=== PATIENT | female | born 1985 | race African-American/Black ===

== ENCOUNTER → 2017-03-08 | Outpatient (CLI) | payer OTHER, MEDICAID | LOC: HPND 08:06 | DX: O26.872 Cervical shortening, second trimester (principal); O34.12 Maternal care for benign tumor of corpus uteri, second trimester; D25.1 Intramural leiomyoma of uterus; Z3A.19 19 weeks gestation of pregnancy | CPT/HCPCS: 76805; 76817 ==

== ENCOUNTER → 2017-09-21 | Outpatient (CLI) | payer OTHER ==
[~2017-09-21] MED LIST: CEPH-460 PO; IBUP-232 PO; OXYC1TAB63 PO; SENN8.6T13 PO
[2017-09-21 12:37] LABS: HEMATOCRIT 39.5 % (35.0-46.0); HEMO FLAGS DIFF FINAL; MEAN CELL VOLUME 89.2 FL (80.0-100.0); MEAN CORPUSCULAR HEMOGLOBIN 30.2 PG (27.0-34.0); MEAN CORPUSCULAR HGB CONC 33.9 % (32.0-36.0); PLATELET COUNT 299 TH/MM3 (150-450); RED BLOOD COUNT 4.43 MIL/MM3 (4.00-5.30); RED CELL DISTRIBUTION WIDTH 12.5 % (11.6-17.2); WHITE BLOOD COUNT 7.6 TH/MM3 (4.0-11.0)
[2017-09-21 12:38] LABS: AUTOMATED NEUTROPHIL # 3.2 TH/MM3 (1.8-7.7); BASOPHIL % 0.6 % (0.0-2.0); EOSINOPHIL # 0.1 TH/MM3 (0-0.4); EOSINOPHIL % 1.9 % (0.0-4.0); LYMPH % 47.2 % (9.0-44.0); LYMPHOCYTE # 3.6 TH/MM3 (1.0-4.8); MONO % 8.3 % (0.0-8.0)
[2017-09-21 12:56] LABS: BLOOD, URINE NEG (NEG); GLUCOSE,URINE NEG (NEG); KETONE, URINE NEG (NEG); MUCUS URINE FEW /lpf (OCC); NITRITE,URINE NEG (NEG); URINE COLOR YELLOW (YELLW/STRAW)
[2017-09-21 13:05] LABS: ANION GAP 5 MEQ/L (5-15); BICARBONATE 28.6 MEQ/L (21.0-32.0); BLOOD UREA NITROGEN 11 MG/DL (7-18); CHLORIDE 104 MEQ/L (98-107); GLOMERULAR FILTRATION RATE 114 ML/MIN (>89); GLUCOSE,FASTING 73 MG/DL (74-99); POTASSIUM 3.7 MEQ/L (3.5-5.1); SODIUM (NA) 138 MEQ/L (136-145)
[2017-09-21 13:18] LABS: BHCG SCREEN QUALITATIVE LESS THAN 1 MIU/ML (0-5)
== END ==
LOC: CPRE 11:55
PROVIDERS: ATTEND Obstetrics & Gynecology
DX: Z01.812 Encounter for preprocedural laboratory examination (principal); D25.9 Leiomyoma of uterus, unspecified
CPT/HCPCS: 36415; 80048; 81001; 84703; 85025

== ENCOUNTER 2017-09-26 05:34 | Inpatient (IN) | payer OTHER ==
[~2017-09-26] VITALS: Ht 162.6 cm; Wt 95.6 kg
[2017-09-26] MEDS ORDERED: CHLORHEXIDINE GLUCONATE 2 % 1 PACK (2 CLOTHS) TOPICAL PRN (06:00)
[2017-09-26] MEDS ORDERED: LACTATED RINGER'S 1000 ML IV PRN (06:00)
[2017-09-26] MEDS ORDERED: METOPROLOL TARTRATE 25 MG TAB PO PRN (06:00)
[2017-09-26] MEDS ORDERED: ceFAZolin 2 GM PREMIX 50 ML IV SCH (06:00)
[2017-09-26] MEDS ORDERED: POVIDONE IODINE 5% (ANTISEPSIS KIT) 4 APPLICATIONS EACH NARE PRN (06:00)
[2017-09-26] MEDS ORDERED: ACETAMINOPHEN 1000 MG/100 ML 100 ML IV ONE (06:39)
[2017-09-26] MEDS ORDERED: VASOPRESSIN 20 UNITS/ML VIAL (IVTITR) ONE (07:12)
[2017-09-26] MEDS ORDERED: DOCUSATE SODIUM 100 MG CAP PO PRN (09:15)
[2017-09-26] MEDS ORDERED: PROMETHAZINE HCL 25 MG TAB PO PRN (09:15)
[2017-09-26] MEDS ORDERED: ONDANSETRON ODT 4 MG TAB SL PRN (09:15)
[2017-09-26] MEDS ORDERED: oxyCODONE/ACETAMINOPHEN 5 MG/325 MG TAB PO PRN (09:15)
[2017-09-26] MEDS ORDERED: ONDANSETRON HCL 4 MG/2 ML VIAL IV PUSH PRN (09:15)
[2017-09-26] MEDS ORDERED: NALOXONE HCL 0.4 MG/ML AMP IV PUSH PRN (09:15)
--- NOTE | 2017-09-26 09:16 | HHI.PR ---
Immediate Post Op Note Procedure Date: Sep 26, 2017 Pre Op Diagnosis: (1) Uterine leiomyoma (2) Premenopausal menorrhagia (3) Abdominal bloating Post Op Diagnosis: (1) Uterine leiomyoma (2) Premenopausal menorrhagia (3) Abdominal bloating Surgeon: Yanelis Adan MD Anode Machine Operator(s): Anabel James MD Procedure: Exam under anesthesia, exploratory laparotomy, uterine myomectomy Findings: enlarged 18 wk size leiomyomatous uterus, normal bilateral adnexa Complications: none Specimen(s) removed: uterine leiomyoma x 2 Estimated blood loss: 150 mL Anesthesia: General Drains: None Fluids: 1800mL IVF Urinary Output (mLs): 450 Patient to: PACU Patient Condition: Good Yanelis Adan MD Sep 26, 2017 09:16
[2017-09-26] MEDS ORDERED: *morphine SULFATE 8 MG/ML PERIprocedure ONLY ONE (09:35)
--- NOTE | 2017-09-26 09:40 | MP ---
cc: KEYANA MCCONNELL M.D. DATE OF SURGERY September 26, 2017 DATE OF 1985 PREOPERATIVE DIAGNOSES 1. Enlarged fibroid uterus. 2. Abdominal pain and bloating. 3. Premenopausal menorrhagia. POSTOPERATIVE DIAGNOSES 1. Enlarged fibroid uterus. 2. Abdominal pain and bloating. 3. Premenopausal menorrhagia. 4. Postop day #0. INDICATIONS Angelina Hendrickson is a 31-year-old 1, para 0-1-0-1 who has a history of enlarging abdominal girth unintentionally with bloating and cramps, dyspareunia and heavy cycles. She recently had a that was complicated by cervical dilation and she delivered at around 25 weeks. Imaging during the showed two rather large uterine myomas. The patient desired to have surgical removal and declined hysterectomy as she desired future pregnancies. PROCEDURE PERFORMED 1. Examination under anesthesia. 2. Exploratory laparotomy. 3. Uterine myomectomy x 2. SURGEON Keyana Mcconnell MD HYDROELECTRIC POWERPLANT SUPERVISOR SURGEON Anabel James MD TYPE OF ANESTHESIA General endotracheal. ESTIMATED BLOOD LOSS 150 mL. IV FLUID REPLACEMENT 1800 mL. URINE OUTPUT 450 mL of clear urine, draining in the Gill bag at the end of the procedure. SPECIMEN Uterine leiomyoma x 2. COUNTS Sponge, lap, instrument, needle counts all correct x 2 at the conclusion of the procedure. PROPHYLAXIS Ancef 2 grams IV was given preoperatively and SCDs were on and functioning throughout the entire case. COMPLICATIONS None. INTRAOPERATIVE FINDINGS Enlarged fibroid uterus, approximately 18 weeks' size. A single dominant myoma taking up much of the anterior subserosal layer was felt to be approximately 9.5 to 10 cm on removal. There was also a very small fundal posterior myoma approximately 2 cm that were removed as well. The adnexa, ovaries and tubes were within normal limits. A second myoma had previously been visualized on ultrasound imaging showing 6.5 cm in the lower uterine segment; this was not seen. It is suspected that the 6.5 and 9 cm myomas had grown together as it was one large mass that was removed anteriorly. PROCEDURE IN DETAIL After reviewing the informed consent, the patient was taken to the operating suite where a time-out was performed to identify the patient, the planned procedure and any known allergies to drugs or drug products. The patient was placed in dorsal supine position and general anesthesia was administered without difficulty, found to be adequate. The abdomen and perineum were prepped and draped in normal sterile fashion. A Gill catheter was placed using sterile technique. Pfannenstiel type skin incision was then made with the scalpel, carried down to the underlying layer of fascia with the Bovie. The fascia was incised in the midline and incision was extended laterally using sharp dissection using Ruth scissors. The fascia was elevated superiorly and the rectus muscles were dissected off sharply with Ruth scissors. Kochers were then moved to the inferior edge of the fascial incision and the rectus muscles were again dissected off sharply with Ruth scissors. The rectus muscles were then in the midline. The peritoneum was identified and entered bluntly with the surgeon's index finger. The incision was extended superiorly and inferiorly with good visualization of the intraabdominal contents. The uterus was markedly enlarged, so a retractor was not necessary as the uterus was lifted up out of the incision for the remainder of the procedure. Dilute pitressin was injected in the subserosal layer and Bovie cautery was used to make a vertical anterior-fundal type uterine incision overlying the large anterior subserous myoma. Using gentle delicate dissection with pickups and metzenbaum scissors, the myoma was eventually able to be shelled out and was passed off the field for evaluation by pathology. Irrigation was performed. It appeared that the endometrial cavity was not entered. Layers of running suture using 0 Vicryl were used to close the subserous space and then two layers of baseball type and then imbricating suture were used to close the surface of the uterus. The second myoma located posterior fundal pedunculated was identified; its base was injected again with dilute pitressin. Using Bovie cautery it was successfully excised off its stalk and running and then baseball type stitch was used to close over this area with 0 Vicryl with excellent hemostasis noted. The pelvis was irrigated. No active bleeding was noted. Maximo was placed over the two incision lines and a layer of Interceed was placed as an adhesive barrier. The uterus was returned to the abdomen. The peritoneum was then closed in a running layer with 2-0 chromic. The fascia was closed in a running layer with #1 Vicryl. The subcutaneous tissue was then closed in an interrupted series with 2-0 chromic to close the subcutaneous space. The skin was cleaned and dried and closed with 4-0 Monocryl in subcuticular fashion. The skin was cleaned and dried. Steri-Strips were placed as was a standard dressing. The procedure concluded at this point. The patient tolerated the procedure well without complication. DISPOSITION The patient will be admitted to inpatient status, expected postoperative course is 1-2 days postoperatively. MD LOPEZ Bonds/ALISON D 09/26/2017/9:11 AM T 09/27/2017/9:08 AM SHARDA
[2017-09-26] MEDS ORDERED: DO NOT ADM ANY ANTICOAGULANT DRUGS PRN (10:00)
[2017-09-26] MEDS: LACTATED RINGER'S 1000 ML INJ 1,000 ML IV SCH ×2 (10:30→19:07)
[2017-09-26 11:00] VITALS: BP 121/58; PULSE 88; RESP 18; TEMP 98.5; O2SAT 98
[2017-09-26] MEDS ORDERED: MORPHINE SULFATE 30 MG/30 ML PCA IV SCH (11:30)
[2017-09-26] MEDS: KETOROLAC TROMETHAMINE 30 MG/ML (IVP) VIAL IV PUSH SCH ×2 (12:15→18:19)
[2017-09-26] MEDS: PCA - TOTAL MG MORPHINE DELIVERED PER SHIFT SCH ×2 (14:00→22:09)
[2017-09-26] MEDS: BENZONATATE 100 MG CAP PO SCH ×2 (14:12→18:18)
[2017-09-26 15:00] VITALS: BP 119/72; PULSE 92; RESP 18; TEMP 97.7; O2SAT 97
[2017-09-26 18:33] VITALS: BP 120/68; PULSE 86; RESP 18; TEMP 98.1; O2SAT 98
[2017-09-26] MEDS: SODIUM CHLORIDE 0.9% FLUSH 10 ML FLUSH IV FLUSH SCH ×2 (20:08→20:49)
[2017-09-26 20:45] VITALS: BP 112/63; PULSE 95; RESP 18; TEMP 97.9; O2SAT 98
[2017-09-26] MEDS: guaiFENesin/CODEINE SYRUP 200 MG/20 MG/10 ML CUP PO PRN (20:49)
[2017-09-26 21:20] VITALS: BP_SYST 105; BP_SYST 112; BP_DIAS 63; BP_DIAS 64; PULSE 62; PULSE 95; RESP 18; TEMP 97.9; TEMP 99.1; O2SAT 98
[2017-09-26] MEDS: diphenhydrAMINE HCL 25 MG CAP PO PRN (22:09)
[2017-09-27 00:25] VITALS: BP 122/67; PULSE 71; RESP 18; TEMP 98.5; O2SAT 98
[2017-09-27] MEDS: SODIUM CHLORIDE 0.9% FLUSH 10 ML FLUSH IV FLUSH PRN ×2 (00:29→05:37)
[2017-09-27] MEDS: KETOROLAC TROMETHAMINE 30 MG/ML (IVP) VIAL IV PUSH SCH ×2 (00:29→05:36)
[2017-09-27] MEDS: guaiFENesin/CODEINE SYRUP 200 MG/20 MG/10 ML CUP PO PRN ×2 (00:30→05:37)
[2017-09-27 05:30] VITALS: BP 102/61; PULSE 78; RESP 16; TEMP 98.4; O2SAT 97
[2017-09-27] MEDS: LACTATED RINGER'S 1000 ML INJ 1,000 ML IV SCH (05:35)
[2017-09-27] MEDS: PCA - TOTAL MG MORPHINE DELIVERED PER SHIFT SCH (05:35)
[2017-09-27] MEDS: diphenhydrAMINE HCL 25 MG CAP PO PRN (05:37)
[2017-09-27 06:02] LABS: AUTOMATED NEUTROPHIL # 8.4 TH/MM3 (1.8-7.7); BASOPHIL % 0.2 % (0.0-2.0); HEMO FLAGS DIFF FINAL; LYMPHOCYTE # 2.1 TH/MM3 (1.0-4.8); MEAN CELL VOLUME 89.2 FL (80.0-100.0); MEAN CORPUSCULAR HEMOGLOBIN 30.3 PG (27.0-34.0); MEAN CORPUSCULAR HGB CONC 33.9 % (32.0-36.0); MONO % 8.5 % (0.0-8.0); NEUT % 73.3 % (16.0-70.0); PLATELET COUNT 267 TH/MM3 (150-450); RED BLOOD COUNT 3.81 MIL/MM3 (4.00-5.30); RED CELL DISTRIBUTION WIDTH 12.4 % (11.6-17.2); WHITE BLOOD COUNT 11.5 TH/MM3 (4.0-11.0)
[2017-09-27] MEDS ORDERED: IBUP-232 PO (07:57)
[2017-09-27] MEDS ORDERED: OXYC1TAB63 PO (07:57)
[2017-09-27] MEDS ORDERED: SENN8.6T13 PO (07:57)
[2017-09-27 08:00] VITALS: BP 111/69; PULSE 68; RESP 18; TEMP 97.8; O2SAT 95
--- NOTE | 2017-09-27 08:04 | HHI.PR ---
Subjective Remarks Did well overnight, rosario out this AM and has voided already; not yet eaten, did tolerate clears overnight; on scheduled IV Toradol & prn Morphine HOGSHEAD INSPECTOR currently; has not used HOGSHEAD INSPECTOR in >10 hours; pain currently minimal 2/10 at incision while laying in bed; reports vaginal bleeding like menses, no clots Objective Vital Signs Vital Signs Date Time Temp Pulse Resp B/P (MAP) Pulse Ox O2 Delivery O2 Flow Rate FiO2 09/27/17 05:35 16 09/27/17 05:30 98.4 78 16 102/61 (75) 97 09/27/17 00:25 98.5 71 18 122/67 (85) 98 09/26/17 22:09 18 09/26/17 20:45 97.9 95 18 112/63 (79) 98 09/26/17 18:33 98.1 86 18 120/68 (85) 98 09/26/17 15:00 97.7 92 18 119/72 (88) 97 09/26/17 14:00 18 09/26/17 11:51 16 09/26/17 11:00 98.5 88 18 121/58 (79) 98 09/26/17 10:30 97.7 94 16 120/63 (82) 100 Nasal Cannula 2 09/26/17 10:15 89 16 122/66 (84) 100 Nasal Cannula 2 09/26/17 10:00 84 16 118/64 (82) 100 Nasal Cannula 4 09/26/17 09:45 101 16 107/56 (73) 100 Nasal Cannula 4 09/26/17 09:30 109 16 116/69 (85) 99 Nasal Cannula 4 09/26/17 09:25 97.7 109 16 117/68 (84) 98 Nasal Cannula 4 I/O 09/26/17 09/26/17 09/26/17 09/27/17 09/27/17 09/27/17 07:00 15:00 23:00 07:00 15:00 23:00 Intake Total 1800 ml 200 ml 1909 ml Output Total 600 ml 1150 ml 1900 ml Balance 1200 ml -950 ml 9 ml Intake Oral 200 ml IV Total 1909 ml Other 1800 ml Output Urine Total 450 ml 1150 ml 1900 ml Estimated Blood Loss 150 ml # Voids 1 Result Diagram: 09/27/17 0427 Objective Remarks Chest is clear, regular rate and rhythm. Abdomen is soft and non-distended. +BS all quadrants Incision intact, steri-strips in place Ext no CCE. A/P Assessment and Plan Post Op Day 1 s/p ex-lap uterine myomectomy x 2 transition from IV to oral medications ambulate see if can tolerate diet if does well today anticipate d/c to home this afternoon has office f/u 2 wks aware of precautions & postop recommendations Yanelis Adan MD Sep 27, 2017 08:04
--- NOTE | 2017-09-27 08:13 | HHI.DS ---
Discharge Summary Admission Date Sep 26, 2017 at 09:19 Discharge Date: Sep 27, 2017 Admitting Diagnosis Enlarged leiomyomatous uterus, premenopausal menorrhagia, abdominal bloating (1) S/P myomectomy Diagnosis: Principal ICD Codes: Z98.890 - Other specified postprocedural states Status: Acute (2) Premenopausal menorrhagia Diagnosis: Principal ICD Codes: N92.4 - Excessive bleeding in the premenopausal period Status: Chronic (3) Uterine leiomyoma Diagnosis: Principal ICD Codes: D25.9 - Leiomyoma of uterus, unspecified Status: Chronic (4) Abdominal bloating Diagnosis: Principal ICD Codes: R14.0 - Abdominal distension (gaseous) Status: Chronic Procedures Exam under anesthesia, exploratory laparotomy, abdominal myomectomy x 2 Brief History Angelina Hendrickson is a 31 yo who within the past year delivered a severely infant, in part due to abnormal uterine cavity and 2 distinct known myomas. Patient has heavy menses, abdominal pain and bloating, and myomas remained large outside the time frame. Pt desired surgical management as she desire future childbearing and was warned by [facility] physician if myomas were not removed patient would be very high risk for future . On preoperative imaging 2 distinct myomas, one 9.5 cm anterior subserous/ submucous another 6.5 cm submucous lower uterine segment. CBC/BMP: 09/27/17 0427 Significant Findings Laboratory Tests Test 09/27/17 04:27 White Blood Count 11.5 TH/MM3 (4.0-11.0) Red Blood Count 3.81 MIL/MM3 (4.00-5.30) Hemoglobin 11.5 GM/DL (11.6-15.3) Hematocrit 34.0 % (35.0-46.0) Neutrophils (%) (Auto) 73.3 % (16.0-70.0) Monocytes (%) (Auto) 8.5 % (0.0-8.0) Neutrophils # (Auto) 8.4 TH/MM3 (1.8-7.7) Monocytes # (Auto) 1.0 TH/MM3 (0-0.9) PE at Discharge NAD A&Ox 3 CTA b/l no wheeze RRR no murmur NDNT +BS incision c/d/i steri-strips in place no c/c/e x 4 Hospital Course Uncomplicated intraoperative course with successful removal of myoma x 2 without entering endometrial cavity. Overnight postoperative day #0 patient did well and by postoperative day #1 patient was transitioned from IV to oral medications, was voiding on own and pain was well controlled. Once patient was meeting criteria she was discharged to home. She has office follow-up in 2 weeks and is aware of postoperative precautions. Pt Condition on Discharge: Good Discharge Disposition: Discharge Home Discharge Instructions DIET: Follow Instructions for: As Tolerated, No Restrictions Activities you can perform: Non Weight Bearing, Shower Only-No Bath, Pelvic Rest Activities to avoid: Lifting/Bending, Strenuous Activity, Driving, Sexual Activity Additional Activity Instructio: no driving x 2 weeks; no lifting/bending; pelvic rest, no sexual activity x 6 weeks Yanelis Adan MD Sep 27, 2017 08:13
[2017-09-27] MEDS: BENZONATATE 100 MG CAP PO SCH ×2 (08:40→14:02)
[2017-09-27] MEDS: SODIUM CHLORIDE 0.9% FLUSH 10 ML FLUSH IV FLUSH SCH (08:42)
[2017-09-27] MEDS: IBUPROFEN 600 MG TAB PO SCH ×2 (08:44→14:02)
[2017-09-27] MEDS ORDERED: DOCUSATE SODIUM 100 MG CAP PO SCH (09:00)
[2017-09-27] MEDS ORDERED: IBUPROFEN 600 MG TAB PO PRN (09:15)
[2017-09-27 12:00] VITALS: BP 102/56; PULSE 84; RESP 18; TEMP 98.2; O2SAT 96
== END 2017-09-27 16:03 | disposition home or self-care (01) | DRG 743 ==
LOC: HSDC 05:34 → EDSTATUS 07:30 → HSDI 09:19 → H1EA 10:49
PROVIDERS: ADMIT Obstetrics & Gynecology; ATTEND Obstetrics & Gynecology
PROC: 0UB90ZZ Excision of Uterus, Open Approach (ICD-10-PCS; principal; 2017-09-26 07:24)
DX: D25.2 Subserosal leiomyoma of uterus (principal); N92.4 Excessive bleeding in the premenopausal period; Z68.36 Body mass index [BMI] 36.0-36.9, adult; E66.9 Obesity, unspecified; N94.10 Unspecified dyspareunia
CPT/HCPCS: 85025; 86850; 86900; 86901; 88305; 88307; 94150; J0131; J0690; J1885; J2270; J2405; J7120

== ENCOUNTER 2017-10-07 19:21 | Emergency (ER) | payer OTHER ==
[~2017-10-07] VITALS: Ht 162.6 cm; Wt 95.0 kg
[~2017-10-07 19:21] MED LIST changes: -CEPH-460 PO
[2017-10-07 19:22] VITALS: BP 127/77; PULSE 128; RESP 18; TEMP 98.6; O2SAT 99
[2017-10-07] MEDS ORDERED: ACETAMINOPHEN/HYDROcodone 325 MG/5 MG TAB PO ONE (22:00)
--- NOTE | 2017-10-07 22:09 | PD ---
HPI Chief Complaint: Abdominal Pain Time Seen by Provider: 20:16 Travel History International Travel<30 days: No Contact w/Intl Traveler<30days: No Traveled to known affect area: No History of Present Illness HPI pt has a fibriodectomy Sep 26 and now continues with abdo pain loaclized in carline-umbilical and hypo-umbilical . no vomit no diarrhea no vaginal discharge no bleeding no pus or dishesion of wound, Gave in MAY and had Fibroid removed 3 weeks ago. No fever in ER and no other complaint just localized pain that is constant no releated to food no urination no defecation and nothing over the counter has relieved the pain. Steri-strips are still in place and wound intact no separation of wound edges PFSH Past Medical History Medical History: Denies Significant Hx Cancer: No Cardiovascular Problems: No Diabetes: No Endocrine: No Genitourinary: No Hepatitis: No Hiatal Hernia: No Immune Disorder: No Musculoskeletal: No Neurologic: No Psychiatric: No Reproductive: Yes (FIBROIDS) Respiratory: No Thyroid Disease: No Tetanus Vaccination: Unknown Influenza Vaccination: No ?: Not LMP: UNKNOWN Past Surgical History Abdominal Surgery: No AICD: No Ear Surgery: No Endocrine Surgery: No Eye Surgery: No Genitourinary Surgery: No Gynecologic Surgery: Yes (D/C, FIBROID REMOVAL) Joint Replacement: No Oral Surgery: No Pacemaker: No Thoracic Surgery: No Social History Alcohol Use: No Tobacco Use: No Substance Use: No Allergies-Medications (Allergen,Severity, Reaction): Coded Allergies: No Known Allergies (Unverified , 10/07/17) Reported Meds & Prescriptions Reported Meds & Active Scripts Active Ibuprofen 600 Mg Tab 600 Mg PO Q6H PRN Keflex (Cephalexin) 500 Mg Capsule 500 Mg PO Q8H Docusate Sodium & Senna S 8.6-50 mg (Sennosides-Docusate Sodium) 8.6 Mg-50 Mg Tab 1 Tab PO BID Oxycodone-Acetaminophen 5-325 (Oxycodone HCl/Acetaminophen) 5 Mg-325 Mg Tablet 1 Tab PO Q4H PRN Ibuprofen 600 Mg Tab 600 Mg PO Q6H PRN Review of Systems Except as stated in HPI: all other systems reviewed are Neg Gastrointestinal: Positive: Abdominal Pain Physical Exam Narrative GENERAL: Nontoxic-appearing nonseptic appearing awake alert SKIN: Warm and dry. HEAD: Atraumatic. Normocephalic. EYES: Pupils equal and round. No scleral icterus. No injection or drainage. ENT: No nasal bleeding or discharge. Mucous membranes pink and moist. NECK: Trachea midline. No JVD. CARDIOVASCULAR: Regular rate and rhythm. RESPIRATORY: No accessory muscle use. Clear to auscultation. Breath sounds equal bilaterally. GASTROINTESTINAL: Abdomen tender over her periumbilical area and hypoumbilical area soft, nondistended. Hepatic and splenic margins not palpable. MUSCULOSKELETAL: Extremities without clubbing, cyanosis, or edema. No obvious deformities. NEUROLOGICAL: Awake and alert. No obvious cranial nerve deficits. Motor grossly within normal limits. Five out of 5 muscle strength in the arms and legs. Normal speech. PSYCHIATRIC: Appropriate mood and affect; insight and judgment normal. POC bedside sonogram looking for abscess below the surgical site and there is no abscess seen with linear probe Data Data Last Documented VS Vital Signs Date Time Temp Pulse Resp B/P (MAP) Pulse Ox O2 Delivery O2 Flow Rate FiO2 10/07/17 23:59 10/07/17 19:22 98.6 128 18 99 Room Air Orders Orders Urinalysis - C+S If Indicated (10/07/17 21:49) Acetamin-Hydrocod 325-5 Mg ([place] 5-325 (10/07/17 22:00) Complete Blood Count With Diff (10/07/17 21:58) Comprehensive Metabolic Panel (10/07/17 21:58) Ketorolac Inj (Toradol Inj) (10/07/17 22:15) Morphine Inj (Morphine Inj) (10/07/17 22:15) Urine Culture (10/07/17 22:00) Cefazolin 2 Gm Premix (Ancef 2 Gm Premix (10/07/17 23:15) Ed Discharge Order (10/07/17 23:56) Ed Discharge Order (10/07/17 23:56) Labs Laboratory Tests Test 10/07/17 22:00 White Blood Count 9.5 TH/MM3 Red Blood Count 3.94 MIL/MM3 Hemoglobin 12.3 GM/DL Hematocrit 34.9 % Mean Corpuscular Volume 88.6 FL Mean Corpuscular Hemoglobin 31.3 PG Mean Corpuscular Hemoglobin Concent 35.3 % Red Cell Distribution Width 12.0 % Platelet Count 418 TH/MM3 Mean Platelet Volume 7.5 FL Neutrophils (%) (Auto) 68.8 % Lymphocytes (%) (Auto) 23.0 % Monocytes (%) (Auto) 7.8 % Eosinophils (%) (Auto) 0.1 % Basophils (%) (Auto) 0.3 % Neutrophils # (Auto) 6.6 TH/MM3 Lymphocytes # (Auto) 2.2 TH/MM3 Monocytes # (Auto) 0.7 TH/MM3 Eosinophils # (Auto) 0.0 TH/MM3 Basophils # (Auto) 0.0 TH/MM3 CBC Comment DIFF FINAL Differential Comment Urine Color YELLOW Urine Turbidity HAZY Urine pH 7.0 Urine Specific [place] 1.013 Urine Protein TRACE mg/dL Urine Glucose (UA) NEG mg/dL Urine Ketones NEG mg/dL Urine Occult Blood TRACE Urine Nitrite NEG Urine Bilirubin NEG Urine Urobilinogen LESS THAN 2.0 MG/DL Urine Leukocyte Esterase LARGE Urine RBC 5 /hpf Urine WBC 108 /hpf Urine WBC Clumps RARE Urine Squamous Epithelial Cells <1 /hpf Urine Bacteria OCC /hpf Urine Mucus FEW /lpf Microscopic Urinalysis Comment CULTURE INDICATED Blood Urea Nitrogen 11 MG/DL Creatinine 0.95 MG/DL Random Glucose 87 MG/DL Total Protein 8.7 GM/DL Albumin 3.1 GM/DL Calcium Level 9.1 MG/DL Alkaline Phosphatase 61 U/L Aspartate Amino Transf (AST/SGOT) 10 U/L Alanine Aminotransferase (ALT/SGPT) 17 U/L Total Bilirubin 0.3 MG/DL Sodium Level 133 MEQ/L Potassium Level 3.6 MEQ/L Chloride Level 99 MEQ/L Carbon Dioxide Level 26.6 MEQ/L Anion Gap 7 MEQ/L Estimat Glomerular Filtration Rate 84 ML/MIN [facility] Medical Decision Making Medical Screen Exam Complete: Yes Emergency Medical Condition: Yes Differential Diagnosis post surgical pain vs adhesions or scars from healing incision vs abscess vs cellulitis vs SBO post operative from adhesions Narrative Course pt has POC U/S of wound to look for abscess which i do not see all Sub - Q tissue appears normal and no abscess , UA is positive for UTI I give ancef 2 gms IV and she will follow up as outpt with PCP and Coil Connector Repairer Diagnosis Primary Impression: UTI (urinary tract infection) Qualified Codes: N39.0 - Urinary tract infection, site not specified Additional Impression: Abdominal pain Qualified Codes: R10.33 - Periumbilical pain Scripts Ibuprofen (Ibuprofen) 600 Mg Tab 600 MG PO Q6H Y for PAIN, #20 TAB 0 Refills Prov: Heriberto Pollard MD 10/07/17 Cephalexin (Keflex) 500 Mg Capsule 500 MG PO Q8H for Infection, #28 CAP 0 Refills Prov: Heriberto Pollard MD 10/07/17 Disposition: 01 DISCHARGE HOME Condition: Good Heriberto Pollard MD Oct 07, 2017 22:09
[2017-10-07] MEDS ORDERED: MORPHINE SULFATE 4 MG/ML INJ IV PUSH ONE (22:15)
[2017-10-07] MEDS ORDERED: KETOROLAC TROMETHAMINE 30 MG/ML (IVP) VIAL IV PUSH ONE (22:15)
[2017-10-07 22:20] LABS: AUTOMATED NEUTROPHIL # 6.6 TH/MM3 (1.8-7.7); BASOPHIL % 0.3 % (0.0-2.0); EOSINOPHIL % 0.1 % (0.0-4.0); HEMATOCRIT 34.9 % (35.0-46.0); HEMO FLAGS DIFF FINAL; LYMPHOCYTE # 2.2 TH/MM3 (1.0-4.8); MEAN CELL VOLUME 88.6 FL (80.0-100.0); MEAN CORPUSCULAR HEMOGLOBIN 31.3 PG (27.0-34.0); MEAN CORPUSCULAR HGB CONC 35.3 % (32.0-36.0); MONO % 7.8 % (0.0-8.0); NEUT % 68.8 % (16.0-70.0); PLATELET COUNT 418 TH/MM3 (150-450); RED BLOOD COUNT 3.94 MIL/MM3 (4.00-5.30); WHITE BLOOD COUNT 9.5 TH/MM3 (4.0-11.0)
[2017-10-07 22:29] LABS: BACTERIA, URINE OCC /hpf; BLOOD, URINE TRACE (NEG); COMMENT (UR) CULTURE INDICATED; CULTURE IF INDICATED CULTURE INDICATED; GLUCOSE,URINE NEG (NEG); KETONE, URINE NEG (NEG); MUCUS URINE FEW /lpf (OCC); NITRITE,URINE NEG (NEG); SQUAMOUS EPITHELIAL CELL URINE <1 /hpf (0-5); URINE COLOR YELLOW (YELLW/STRAW)
[2017-10-07 22:33] LABS: ANION GAP 7 MEQ/L (5-15); AST (GOT) 10 U/L (15-37); BICARBONATE 26.6 MEQ/L (21.0-32.0); BLOOD UREA NITROGEN 11 MG/DL (7-18); CHLORIDE 99 MEQ/L (98-107); GLOMERULAR FILTRATION RATE 84 ML/MIN (>89); POTASSIUM 3.6 MEQ/L (3.5-5.1); SODIUM (NA) 133 MEQ/L (136-145)
[2017-10-07 22:35] LABS: ALT (GPT) 17 U/L (10-53)
[2017-10-07 22:37] LABS: ALKALINE PHOSPHATASE 61 U/L (45-117); TOTAL BILIRUBIN ADULT 0.3 MG/DL (0.2-1.0)
[2017-10-07] MEDS ORDERED: ceFAZolin 2 GM PREMIX 50 ML IV ONE (23:15)
[2017-10-07] MEDS ORDERED: CEPH-460 PO (23:32)
[2017-10-07] MEDS ORDERED: IBUP-232 PO (23:32)
== END 2017-10-08 00:26 | disposition home or self-care (01) ==
LOC: NEPE 19:21
DX: N39.0 Urinary tract infection, site not specified (principal); B96.20 Unspecified Escherichia coli [E. coli] as the cause of diseases classified elsewhere; R10.33 Periumbilical pain; Z79.899 Other long term (current) drug therapy
CPT/HCPCS: 80053; 81001; 85025; 87077; 87086; 87186; 96374; 96375; 99284; J0690; J1885; J2270